=== PATIENT | male | born 1965 | race Two or more races ===

== ENCOUNTER 2019-10-24 22:46 | Emergency (ER) | payer SELFPAY ==
[~2019-10-24] VITALS: Ht 172.7 cm; Wt 70.3 kg
[2019-10-24 22:56] VITALS: BP 160/94
== END 2019-10-25 01:21 | disposition left against medical advice (07) ==
LOC: ER 22:46
DX: Z53.21 Procedure and treatment not carried out due to patient leaving prior to being seen by health care provider (principal)
CPT/HCPCS: 93005

== ENCOUNTER 2019-10-31 08:00 | Emergency (ER) | payer SELFPAY | END 2019-10-31 08:15 | disposition left against medical advice (07) | LOC: ER 08:00 | DX: Z53.21 Procedure and treatment not carried out due to patient leaving prior to being seen by health care provider (principal) ==